=== PATIENT | male | born 1965 | race African-American/Black ===

== ENCOUNTER 2017-02-24 19:38 | Observation (INO) | payer BC ==
[~2017-02-24] VITALS: Ht 180.3 cm; Wt 109.3 kg
--- NOTE | ~2017-02-24 | HP ---
History And Physical [place] [address] [facility] [place]. [address] NAME: CHACHA REYNOLDS : 65 STATUS : ADM Jackie PAT#: [id number] AGE: 51 ADM/REG DATE : 02/24/17 MR#: [id number] REPORT SERV DATE: 02/25/17 DICTATED BY: BARBARA VELÁSQUEZ DATE: 02/25/17 REPORT STATUS : Draft TRANSCRIBED BY: MODL DATE: 02/25/17 DATE OF ADMISSION: 02/24/2017 CHIEF COMPLAINT: Atypical chest pain. HISTORY OF PRESENT ILLNESS: A very pleasant 51-year-old black gentleman with no known history of CAD, states that over the last several weeks he has experienced chest pain just to the right of his upper sternum described as a tightness that radiates to his right shoulder. He states he saw his PCP recently twice, once he was told he had an abnormal EKG, at the second visit an echocardiogram was performed in Dr. Aguilera's office and he was told that was abnormal as well that he "may have had a heart attack in the past." At its most intense, he rates the chest pain an 8/10. At time of interview in the CPOU, he rates it a 5/10. The duration is persistent. He states the discomfort is worse at times with lifting heavy objects. He describes some associated shortness of breath. Denies nausea, diaphoresis, dizziness, or belching. The patient denies any personal history of myocardial infarction, stroke, DVT, or pulmonary embolus. The patient denies any recent fever or chills, no palpitations, no syncopal events. No clear report of PND or orthopnea, but reports he does sleep on two to four pillows most nights. Of note, the patient states that he fell on 05/12/2016 at work, he slipped on some fluid on the floor and hit the posterior head. He was evaluated from work. He states that an MRI was performed and was negative, but since that event he has had episodic headaches, which his PCP and Dr. Peterson are aware of. PAST MEDICAL HISTORY: 1. Denies hypertension, dyslipidemia, or diabetes. 2. Questionable GERD. 3. Obesity. PAST SURGICAL HISTORY: None. SOCIAL HISTORY: He is with two children. 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 He does not have a structured exercise routine. Denies tobacco, alcohol, or illicits. FAMILY HISTORY: No embolic events reported in first-degree relatives. REVIEW OF SYSTEMS: A 14-point review of systems performed, significant for HPI including snores per report with no formal sleep study. Otherwise, complete review of systems obtained and negative. ALLERGIES: NO KNOWN DRUG ALLERGIES. HOME MEDICATIONS: 1. Vitamin C 1000 mg daily. History And Physical [address] [address] NAME: CHACHA REYNOLDS : 65 STATUS : ADM Jackie PAT#: [id number] AGE: 51 ADM/REG DATE : 02/24/17 MR#: [id number] REPORT SERV DATE: 02/25/17 DICTATED BY: BARBARA VELÁSQUEZ DATE: 02/25/17 REPORT STATUS : Draft TRANSCRIBED BY: NATALIE DATE: 02/25/17 2. Aspirin 81 mg daily. 3. Multivitamin daily. 4. Gabapentin 300 mg t.i.d. 5. Celebrex 200 mg daily. 6. Flexeril 7.5 mg t.i.d. PHYSICAL EXAMINATION: BLOOD PRESSURE: Bilateral blood pressures on arrival, right 119/66, left 128/68, this morning 128/56. PULSE: 67. RESPIRATORY RATE: 16. TEMPERATURE: 98.0. O2 saturation 96% on room air. HEIGHT: 5 feet 11 inches. WEIGHT: 245 pounds. BMI: 34. GENERAL: Cooperative, in no apparent distress. HEENT: Pupils 2 mm, sclera nonicteric. Nares patent. Moist mucous membranes. No xanthelasma. NECK: Trachea midline. No thyromegaly. No JVD. No bruits. LYMPH: No cervical lymphadenopathy. No supraclavicular lymphadenopathy. RESPIRATORY: Unlabored respirations. Breath sounds clear bilaterally to posterior auscultation. No wheezes or rhonchi. CHEST: Minimally tender mid chest to palpation on exam. CARDIOVASCULAR: Regular rate. No murmur, rub or gallop appreciated. Extremities without edema. Pulses 2+ bilaterally. ABDOMEN: Soft, nontender, and nondistended. Normal bowel sounds auscultated throughout. No organomegaly. SKIN: Warm and dry extremities. No pallor, or cyanosis. PSYCHIATRIC: Appropriate affect. Alert and oriented x3. LABORATORY DATA: Troponin less than 0.02 x3. Potassium 3.9, BUN 18, creatinine 1.05, glucose 98, and magnesium 2.2. WBC 10.1, hemoglobin 13.9, hematocrit 38.9, and platelet count 213,000. EKG: Sinus rhythm. PRWP, nonspecific T-waves. TMO in 01/2014: Dylan stage 4 10:01 minutes, 13 METS, negative treadmill study. ASSESSMENT AND PLAN: 1. Chest pain with atypical features in patient with few risk factors. The patient has been observed in the CPOU overnight to rule out myocardial infarction with serial enzymes and serial EKGs, and held n.p.o. We will proceed with MPI today. The patient will be discharged home if low risk, no ischemia. If anything suggestive of ischemia, Cardiology referral will be initiated. Otherwise, the patient will be asked to follow up with PCP in one to two weeks with all studies being sent to that office. 2. Unknown cholesterol status. We will check a fasting lipid panel. 3. Persistent headache. After a fall at work in April 2016, completed evaluation at the time of incident with reportedly negative MRI at that time. Episodic headaches have persisted. PCP and Dr. Quincy Peterson are aware. 4. Questionable gastroesophageal reflux disease. Recommend [id number] Zantac 75 mg twice daily for one to two weeks at discharge. Suggest an outpatient GI workup. Diet History And Physical [address] [address] NAME: CHACHA REYNOLDS : 65 STATUS : ADM Jackie PAT#: [id number] AGE: 51 ADM/REG DATE : 02/24/17 MR#: [id number] REPORT SERV DATE: 02/25/17 DICTATED BY: BARBARA VELÁSQUEZ DATE: 02/25/17 REPORT STATUS : Draft TRANSCRIBED BY: NATALIE DATE: 02/25/17 and exercise discussed including avoiding large meals, spicy foods, or eating four hours prior to bedtime. AILYN/NATALIE Barbara Velásquez, MSN, HEEL SEAT FITTER-BC / [id number] CC: Barbara Velásquez, SHAUNNA, HEEL SEAT FITTER- Jermain Aguilera M.D.
[~2017-02-24 19:38] MED LIST: CENTRUM PO; VITC500 PO
[2017-02-24 20:21] LABS: BASOPHILS 0.4 %; BASOPHILS ABSOLUTE 0.04 10/3/uL (0.0-0.16); ER CBC TAT 0 Hrs 08 Mins; HEMATOCRIT 38.9 % (40.0-51.0); HEMOGLOBIN 13.9 g/dL (13.6-17.8); IMMATURE GRANULOCYTES 0.3 %; IMMATURE GRANULOCYTES ABSOLUTE 0.03 10/3/uL (0.0-0.11); LYMPHOCYTES 30.8 %; LYMPHOCYTES ABSOLUTE 3.11 10/3/uL (0.67-4.30); MEAN CORPUS HGB CONC 35.7 g/dL (32.0-36.0); MEAN CORPUSCULAR HEMOGLOB 29.4 pg (26.0-34.0); MEAN CORPUSCULAR VOLUME 82.4 fL (80-100); MEAN PLATELET VOLUME 9.6 fL (9.2-13.0); MONOCYTES 11.8 %; MONOCYTES ABSOLUTE 1.19 10/3/uL (0.21-1.20); NEUTROPHILS 52.7 %; NEUTROPHILS ABSOLUTE 5.32 10/3/uL (2.02-8.40); PLATELET COUNT 213 10/3/uL (150-400); RBC DISTRIBUTION WIDTH 13.3 % (12.0-16.0); RED CELL COUNT 4.72 10/6/uL (4.7-6.1); WHITE BLOOD CELLS 10.1 10/3/uL (4.5-10.5)
[2017-02-24 20:22] LABS: MANUAL DIFF NO %
[2017-02-24 20:28] LABS: INTERNATIONAL NORMAL RATI 1.1 UNITS (-); PARTIAL THROMBO TIME 31.1 SEC (22.5-37.2); PROTIME (NOT ORD) 14.4 SEC (12.0-14.5)
[2017-02-24 20:42] LABS: CALCIUM, SERUM 9.4 MG/DL (8.5-10.4); CHEST PAIN PROFILE TAT 0 Hrs 29 Mins; CHLORIDE, SERUM 107 MMOL/L (96-112); CO2 (CARBON DIOXIDE) 27 MMOL/L (24-34); CREATININE 1.05 MG/DL (0.70-1.30); GFR AFRICAN AMERICAN 95 ML/MIN (>=60); GFR NON AFRICAN AMERICAN 82 ML/MIN (>=60); GLUCOSE, SERUM 98 MG/DL (60-99); POTASSIUM, SERUM 3.9 MMOL/L (3.5-5.3); SODIUM, SERUM 141 MMOL/L (135-148); TROPONIN I <0.02 NG/ML (<0.05)
[2017-02-24 20:43] LABS: BUN (BLOOD UREA NITROGEN) 18 MG/DL (6-23)
[2017-02-24] MEDS ORDERED: ASAB PO (21:33)
[2017-02-24] MEDS ORDERED: GABAPENTIN 300MG PO (21:33)
[2017-02-24] MEDS ORDERED: CYCLOBENZAPRINE 7.5 MG PO (21:34)
[2017-02-24] MEDS ORDERED: CELEBREX2 PO (21:34)
[2017-02-25 03:28] LABS: TROPONIN I <0.02 NG/ML (<0.05)
[2017-02-25 12:30] LABS: CHOLESTEROL 121 MG/DL (< 200); HDL CHOLESTEROL 24 MG/DL (> 39); LDL CHOLESTEROL 63 MG/DL (< 130); NON-HDL CHOLESTEROL 97 MG/DL (< 160); TRIGLYCERIDE 170 MG/DL (< 150)
== END 2017-02-25 20:43 | disposition home or self-care (01) ==
LOC: ER 19:38 → CDU2 21:37 → CDU1 21:37 → CDU2 21:58
PROVIDERS: Clinical Nurse Specialist; Specialist
DX: I25.110 Atherosclerotic heart disease of native coronary artery with unstable angina pectoris (principal); E66.9 Obesity, unspecified; Z79.899 Other long term (current) drug therapy; Z79.82 Long term (current) use of aspirin; Z68.34 Body mass index [BMI] 34.0-34.9, adult
CPT/HCPCS: 71020; 78452; 80048; 80061; 83735; 84484; 85025; 85610; 85730; 93005; 93017; 93458; 96374; 99152; 99153; 99285; A9270-GY; A9502; C1769; C1887; C1894; G0378; J2250; J3010; Q9967

== ENCOUNTER 2017-02-28 14:20 | Emergency (ER) | payer BC ==
[~2017-02-28 14:20] MED LIST changes: +ASAB PO; +CELEBREX2 PO; +CYCLOBENZAPRINE 7.5 MG PO; +GABAPENTIN 300MG PO
[2017-02-28 14:46] LABS: BASOPHILS 0.3 %; BASOPHILS ABSOLUTE 0.03 10/3/uL (0.0-0.16); EOSINOPHILS 4.4 %; EOSINOPHILS ABSOLUTE 0.48 10/3/uL (0.0-0.53); ER CBC TAT 0 Hrs 03 Mins; HEMOGLOBIN 14.3 g/dL (13.6-17.8); IMMATURE GRANULOCYTES 0.3 %; IMMATURE GRANULOCYTES ABSOLUTE 0.03 10/3/uL (0.0-0.11); LYMPHOCYTES 29.4 %; LYMPHOCYTES ABSOLUTE 3.23 10/3/uL (0.67-4.30); MEAN CORPUS HGB CONC 35.8 g/dL (32.0-36.0); MEAN CORPUSCULAR HEMOGLOB 29.4 pg (26.0-34.0); MEAN CORPUSCULAR VOLUME 82.1 fL (80-100); MEAN PLATELET VOLUME 9.6 fL (9.2-13.0); MONOCYTES 8.7 %; MONOCYTES ABSOLUTE 0.95 10/3/uL (0.21-1.20); NEUTROPHILS 56.9 %; NEUTROPHILS ABSOLUTE 6.25 10/3/uL (2.02-8.40); PLATELET COUNT 218 10/3/uL (150-400); RBC DISTRIBUTION WIDTH 13.6 % (12.0-16.0); RED CELL COUNT 4.87 10/6/uL (4.7-6.1)
[2017-02-28 14:47] LABS: MANUAL DIFF NO %
[2017-02-28 14:56] LABS: INTERNATIONAL NORMAL RATI 1.1 UNITS (-); PARTIAL THROMBO TIME 30.7 SEC (22.5-37.2); PROTIME (NOT ORD) 13.9 SEC (12.0-14.5)
[2017-02-28 14:59] LABS: BUN (BLOOD UREA NITROGEN) 17 MG/DL (6-23); CALCIUM, SERUM 9.2 MG/DL (8.5-10.4); CHLORIDE, SERUM 106 MMOL/L (96-112); CO2 (CARBON DIOXIDE) 26 MMOL/L (24-34); CREATININE 1.07 MG/DL (0.70-1.30); GFR AFRICAN AMERICAN 93 ML/MIN (>=60); GFR NON AFRICAN AMERICAN 80 ML/MIN (>=60); GLUCOSE, SERUM 115 MG/DL (60-99); POTASSIUM, SERUM 3.9 MMOL/L (3.5-5.3); SODIUM, SERUM 141 MMOL/L (135-148)
== END 2017-02-28 15:35 | disposition home or self-care (01) ==
LOC: ER 14:20
PROVIDERS: Nurse Practitioner Acute Care
DX: I82.612 Acute embolism and thrombosis of superficial veins of left upper extremity (principal); K21.9 Gastro-esophageal reflux disease without esophagitis; Z79.82 Long term (current) use of aspirin; Z79.899 Other long term (current) drug therapy
CPT/HCPCS: 80048; 85025; 85610; 85730; 93971; 99284